=== PATIENT | male | born 1970 | race Hispanic/Latino ===

== ENCOUNTER 2018-11-23 20:13 | Observation (INO) | payer BC ==
[2018-11-23] MEDS ORDERED: Sodium Chloride 0.9% 1,000 ML IV ONE (20:22)
[2018-11-23] MEDS ORDERED: Sodium Chloride 0.9% 10 ML Syringe FLUSH PRN ×2 (20:22→23:23)
[2018-11-23] MEDS ORDERED: Sodium Chloride 0.9% 2.5 ML Syringe FLUSH PRN ×2 (20:22→23:23)
--- NOTE | 2018-11-23 20:22 | EDM.PDOC ---
ED HPI GENERAL MEDICAL PROBLEM - General Chief Complaint: Chest Pain Stated Complaint: CHEST PAIN Time Seen by Provider: 11/23/18 20:21 Source of Information: Reports: Patient History Limitations: Reports: No Limitations - History of Present Illness INITIAL COMMENTS - FREE TEXT/NARRATIVE: HISTORY AND PHYSICAL: History of present illness: Patient is a 48-year-old male presents to the ED with complaint of chest pain. He states that it started about 10:00 this morning. He reports this afternoon while he was talking to his coworker he felt lightheaded and had a tingling sensation in his left chest and states that he saw his coworkers lips moving but could not hear them talking. He states this resolved shortly afterwards but has had a lingering mild pain in the chest which she still currently has. He denies any pain into the left jaw or arm, shortness of breath, nausea, diaphoresis. He states he did stay home from work earlier this week due to a cough and generally not feeling well. He denies significant past medical or cardiac history. He states he smokes half a pack a day 30 years. Reports occasional social alcohol use and denies illicit drug use. Review of systems: As per history of present illness and below otherwise all systems reviewed and negative. Past medical history: As per history of present illness and as reviewed below otherwise noncontributory. Surgical history: As per history of present illness and as reviewed below otherwise noncontributory. Social history: No reported history of drug or alcohol abuse. Family history: As per history of present illness and as reviewed below otherwise noncontributory. Physical exam: General: Patient sitting comfortably in no acute distress and nontoxic appearing HEENT: Atraumatic, normocephalic, pupils reactive, negative for conjunctival pallor or scleral icterus, mucous membranes moist, throat clear, neck supple, nontender, trachea midline. No meningeal signs. Lungs: Clear to auscultation, breath sounds equal bilaterally, chest nontender. Heart: S1S2, regular, negative for clicks, rubs, or overt murmur. Abdomen: Soft, nondistended, nontender. Negative for masses or hepatosplenomegaly. Negative for costovertebral tenderness. No rigidity, rebound , guarding. Pelvis: Stable nontender. Genitourinary: Deferred. Rectal: Deferred. Extremities: Atraumatic, negative for cords or calf pain. Neurovascular unremarkable. Neuro: Awake, alert, oriented. Cranial nerves II through XII unremarkable. Cerebellum unremarkable. Motor and sensory unremarkable throughout. Exam nonfocal. Notes: Diagnostics: CBC, CMP, troponin, PT/INR, chest x-ray, EKG Therapeutics: Aspirin 324mg chewed Prescriptions: Impression: Chest pain Plan: Discussed with Dr. Nicole, patient will be admitted to observation for chest pain r/o ACS. Definitive disposition and diagnosis as appropriate pending reevaluation and review of above. Chest Area Pain Score (Numeric/FACES): 6 - Related Data Allergies Allergy/AdvReac Type Severity Reaction Status Date / Time No Known Allergies Allergy Verified 11/23/18 20:17 Home Meds: Home Meds Albuterol Sulfate [Proair Hfa] 8.5 gm IH ASDIRECTED PRN 11/23/18 [History] Methimazole [Tapazole] 10 mg PO DAILY 11/23/18 [History] ED ROS GENERAL - Review of Systems Review Of Systems: ROS reveals no pertinent complaints other than HPI. ED EXAM, GENERAL - Physical Exam Exam: See Below (See dictation) Course - Vital Signs Last Recorded V/S: Last Vital Signs Temp 97.5 F 11/23/18 20:15 Pulse 63 11/23/18 21:00 Resp 17 11/23/18 21:00 BP 162/103 H 11/23/18 21:00 Pulse Ox 96 11/23/18 21:00 - Orders/Labs/Meds Orders: Active Orders 24 hr Category Date Time Status Cardiac Monitoring [RC] . DIRECTED Care 11/23/18 20:22 Active EKG Documentation Completion [RC] STAT Care 11/23/18 20:22 Active Sodium Chloride 0.9% [Saline Flush] Med 11/23/18 20:22 Active 10 ml FLUSH ASDIRECTED PRN Sodium Chloride 0.9% [Saline Flush] Med 11/23/18 20:22 Active 2.5 ml FLUSH ASDIRECTED PRN Saline Lock Insert [OM.PC] Stat Oth 11/23/18 20:22 Ordered Medication Orders Sodium Chloride (Saline Flush) 10 ml FLUSH ASDIRECTED PRN PRN Reason: Keep Vein Open Sodium Chloride (Saline Flush) 2.5 ml FLUSH ASDIRECTED PRN PRN Reason: Keep Vein Open Labs: Laboratory Tests 11/23/18 11/23/18 11/23/18 Range/Units 20:34 20:34 20:34 WBC 6.51 (4.0-11.0) K/uL RBC 5.02 (4.50-5.90) M/uL Hgb 16.1 (13.0-17.0) g/dL Hct 45.1 (38.0-50.0) % MCV 89.8 (80.0-98.0) fL MCH 32.1 H (27.0-32.0) pg MCHC 35.7 (31.0-37.0) g/dL RDW Std Deviation 41.7 (28.0-62.0) fl RDW Coeff of [place] 13 (11.0-15.0) % Plt Count 220 (150-400) K/uL MPV 9.60 (7.40-12.00) fL Neut % (Auto) 36.3 L (48.0-80.0) % Lymph % (Auto) 48.1 H (16.0-40.0) % [place] % (Auto) 8.8 (0.0-15.0) % Eos % (Auto) 6.6 (0.0-7.0) % Baso % (Auto) 0.2 (0.0-1.5) % Neut # (Auto) 2.4 (1.4-5.7) K/uL Lymph # (Auto) 3.1 H (0.6-2.4) K/uL [place] # (Auto) 0.6 (0.0-0.8) K/uL Eos # (Auto) 0.4 (0.0-0.7) K/uL Baso # (Auto) 0.0 (0.0-0.1) K/uL Nucleated RBC % 0.0 /100WBC Nucleated RBCs # 0 K/uL INR 0.94 Sodium 141 (136-148) mmol/L Potassium 3.8 (3.5-5.1) mmol/L Chloride 107 (98-107) mmol/L Carbon Dioxide 25.8 (21.0-32.0) mmol/L BUN 13 (7.0-18.0) mg/dL Creatinine 0.9 (0.8-1.3) mg/dL Est Cr Clr Drug Dosing TNP Estimated GFR (MDRD) > 60.0 ml/min Glucose 108 H (74-106) mg/dL Calcium 9.5 (8.5-10.1) mg/dL Total Bilirubin 0.4 (0.2-1.0) mg/dL AST 25 (15-37) IU/L ALT 26 (14-63) IU/L Alkaline Phosphatase 112 (46-116) U/L Troponin I < 0.050 (0.000-0.056) ng/mL Total Protein 6.7 (6.4-8.2) g/dL Albumin 3.5 (3.4-5.0) g/dL Globulin 3.2 (2.6-4.0) g/dL Albumin/Globulin Ratio 1.1 (0.9-1.6) Meds: Medications Generic Name Dose Route Start Last Admin Trade Name Freq PRN Reason Stop Dose Admin Sodium Chloride 10 ml 11/23/18 20:22 Saline Flush FLUSH ASDIRECTED PRN Keep Vein Open Sodium Chloride 2.5 ml 11/23/18 20:22 Saline Flush FLUSH ASDIRECTED PRN Keep Vein Open Discontinued Medications Generic Name Dose Route Start Last Admin Trade Name Freq PRN Reason Stop Dose Admin Aspirin 324 mg 11/23/18 20:28 11/23/18 20:33 Aspirin PO 11/23/18 20:29 324 mg ONETIME ONE Administration Sodium Chloride 1,000 mls @ 999 mls/hr 11/23/18 20:22 11/23/18 20:33 Normal Saline IV 11/23/18 21:22 999 mls/hr BOLUS ONE Administration Departure - Departure Time of Disposition: 22:05 Disposition: Refer to Observation Condition: Good Clinical Impression: Chest pain Referrals: PCP,None [Primary Care Provider] - Forms: ED Department Discharge - My Orders Last 24 Hours: My Active Orders 11/23/18 20:22 Cardiac Monitoring [RC] . DIRECTED EKG Documentation Completion [RC] STAT Sodium Chloride 0.9% [Saline Flush] 10 ml FLUSH ASDIRECTED PRN Sodium Chloride 0.9% [Saline Flush] 2.5 ml FLUSH ASDIRECTED PRN Saline Lock Insert [OM.PC] Stat - Assessment/Plan Last 24 Hours: My Active Orders 11/23/18 20:22 Cardiac Monitoring [RC] . DIRECTED EKG Documentation Completion [RC] STAT Sodium Chloride 0.9% [Saline Flush] 10 ml FLUSH ASDIRECTED PRN Sodium Chloride 0.9% [Saline Flush] 2.5 ml FLUSH ASDIRECTED PRN Saline Lock Insert [OM.PC] Stat
[2018-11-23] MEDS ORDERED: Aspirin 81 MG Tab.Chew PO ONE (20:28)
[2018-11-23 20:55] LABS: BLOOD UREA NITROGEN,BUN 13 mg/dL (7.0-18.0); CARBON DIOXIDE,CO2 25.8 mmol/L (21.0-32.0); CHLORIDE,CL 107 mmol/L (98-107); GLUCOSE RANDOM 108 mg/dL (74-106); POTASSIUM,K 3.8 mmol/L (3.5-5.1); SODIUM,NA 141 mmol/L (136-148)
--- NOTE | 2018-11-23 21:47 | CR ---
INDICATION: Shortness of breath TECHNIQUE: Chest 1 view. COMPARISON: None. FINDINGS: Cardiovascular and mediastinum: Heart size and vasculature are normal in caliber and appearance. Mediastinum is within normal limits. Lungs and pleural space: Lungs are clear. No sign of infiltrate or mass. No sign of pleural effusion. No pneumothorax. Bones and soft tissues: No significant findings. IMPRESSION: Unremarkable chest. Dictated by: Rene Govea MD @ 11/23/2018 21:46:51 (Electronically Signed)
[2018-11-23] MEDS ORDERED: Acetaminophen 325 MG Tab PO PRN (23:22)
--- NOTE | 2018-11-24 08:03 | PCM.HP.2 ---
H&P History of Present Illness - General Date of Service: 11/24/18 Admit Problem/Dx: Admission Diagnosis/Problem Admission Diagnosis/Problem Chest pain - History of Present Illness Initial Comments - Free Text/Narative: The patient is a 48-year-old male who presented to the ER yesterday with chest pain. 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 He had associated lightheadedness, diaphoresis and shortness of breath. He's never had anything like this before. The pain was intermittent and lasted for minutes at a time. During this time he also noted that his coworker was speaking to him but he couldn't hear them. He denies any past cardiac history. He does note that his father from heart attack at 55. He has hyperthyroidism, takes methimazole, for which he is seeing an [facility]dis registered nurse rn in [place] on Dec 09, 2018. He is a smoker, 1/2 day for 30 years, drinks 6 pack/week, denies drugs. In the ER workup showed no white count, no anemia, no major electrolyte abnormalities and negative troponin. INR was within normal limits. A chest x- ray showed no acute cardiopulmonary process. EKG showed sinus rhythm with early repolarization. In the ER he was given aspirin and IV fluids. PCP- Dr. Garcia Asian Studies Program Chair in [place] Chest Area Pain Score (Numeric/FACES): 6 - Related Data Allergies/Adverse Reactions: Allergies Allergy/AdvReac Type Severity Reaction Status Date / Time No Known Allergies Allergy Verified 11/23/18 20:17 Home Medications: Home Meds Albuterol Sulfate [Proair Hfa] 8.5 gm IH ASDIRECTED PRN 11/23/18 [History] Methimazole [Tapazole] 10 mg PO DAILY 11/23/18 [History] hydroCHLOROthiazide [Hydrochlorothiazide] 25 mg PO DAILY 30 Days #30 tablet [Rx] Past Medical History HEENT History: Reports: None Cardiovascular History: Reports: None Respiratory History: Reports: Asthma Gastrointestinal History: Reports: None Genitourinary History: Reports: None Musculoskeletal History: Reports: None Neurological History: Reports: None Psychiatric History: Reports: None Endocrine/Metabolic History: Reports: Hyperthyroidism Insulin Pump Model and Director External Communications: N/A Hematologic History: Reports: None Immunologic History: Reports: None Oncologic (Cancer) History: Reports: None Dermatologic History: Reports: None - Infectious Disease History Infectious Disease History: Reports: None - Past Surgical History Head Surgeries/Procedures: Reports: None HEENT Surgical History: Reports: None Cardiovascular Surgical History: Reports: None Respiratory Surgical History: Reports: None GI Surgical History: Reports: None Male Surgical History: Reports: None Endocrine Surgical History: Reports: None Neurological Surgical History: Reports: None Musculoskeletal Surgical History: Reports: None Oncologic Surgical History: Reports: None Dermatological Surgical History: Reports: None Social & Family History - Family History Cardiac: Reports: [place] (father from [place] at 55) - Tobacco Use Smoking Status *Q: Current Every Day Smoker Years of Tobacco use: 25 Packs/Tins Daily: 1.5 - Caffeine Use Caffeine Use: Reports: Coffee, Soda - Recreational Drug Use Recreational Drug Use: No H&P Review of Systems - Review of Systems: Review Of Systems: See Below General: Reports: Diaphoresis. Denies: Fever, Chills HEENT: Reports: No Symptoms Pulmonary: Reports: Shortness of Breath Cardiovascular: Reports: Chest Pain, Lightheadedness, Blood Pressure Problem. Denies: Edema Gastrointestinal: Reports: No Symptoms Genitourinary: Reports: No Symptoms Musculoskeletal: Reports: No Symptoms Skin: Reports: No Symptoms Psychiatric: Reports: No Symptoms Hematologic/Lymphatic: Reports: No Symptoms Immunologic: Reports: No Symptoms Exam - Exam Exam: See Below - Vital Signs Vital Signs: Last Vital Signs Temp 97.4 F 11/24/18 04:00 Pulse 66 11/24/18 04:00 Resp 18 11/24/18 04:00 BP 160/79 H 11/24/18 04:00 Pulse Ox 97 11/24/18 04:00 Weight: 107.365 kg - Exam General: Alert, Oriented, Cooperative HEENT: Conjunctiva Clear, EOMI, Mucosa Moist & [place], Posterior Pharynx Clear, Pupils Equal, Pupils Reactive Neck: Supple Lungs: Clear to Auscultation, Normal Respiratory Effort Cardiovascular: Regular Rate, Regular Rhythm GI/Abdominal Exam: Normal Bowel Sounds, Soft, Non-Tender, No Distention Extremities: No Pedal Edema Skin: Warm, Dry, Intact Neurological: Cranial Nerves Intact Neuro Extensive - Mental Status: Alert, Oriented x3 Psychiatric: Alert, Normal Affect, Normal Mood - Patient Data Lab Results Last 24 hrs: Laboratory Results - last 24 hr 11/23/18 11/23/18 11/23/18 Range/Units 20:34 20:34 20:34 WBC 6.51 (4.0-11.0) K/uL RBC 5.02 (4.50-5.90) M/uL Hgb 16.1 (13.0-17.0) g/dL Hct 45.1 (38.0-50.0) % MCV 89.8 (80.0-98.0) fL MCH 32.1 H (27.0-32.0) pg MCHC 35.7 (31.0-37.0) g/dL RDW Std Deviation 41.7 (28.0-62.0) fl RDW Coeff of Neeru 13 (11.0-15.0) % Plt Count 220 (150-400) K/uL MPV 9.60 (7.40-12.00) fL Neut % (Auto) 36.3 L (48.0-80.0) % Lymph % (Auto) 48.1 H (16.0-40.0) % [place] % (Auto) 8.8 (0.0-15.0) % Eos % (Auto) 6.6 (0.0-7.0) % Baso % (Auto) 0.2 (0.0-1.5) % Neut # (Auto) 2.4 (1.4-5.7) K/uL Lymph # (Auto) 3.1 H (0.6-2.4) K/uL [place] # (Auto) 0.6 (0.0-0.8) K/uL Eos # (Auto) 0.4 (0.0-0.7) K/uL Baso # (Auto) 0.0 (0.0-0.1) K/uL Nucleated RBC % 0.0 /100WBC Nucleated RBCs # 0 K/uL INR 0.94 Sodium 141 (136-148) mmol/L Potassium 3.8 (3.5-5.1) mmol/L Chloride 107 (98-107) mmol/L Carbon Dioxide 25.8 (21.0-32.0) mmol/L BUN 13 (7.0-18.0) mg/dL Creatinine 0.9 (0.8-1.3) mg/dL Est Cr Clr Drug Dosing TNP Estimated GFR (MDRD) > 60.0 ml/min Glucose 108 H (74-106) mg/dL Calcium 9.5 (8.5-10.1) mg/dL Total Bilirubin 0.4 (0.2-1.0) mg/dL AST 25 (15-37) IU/L ALT 26 (14-63) IU/L Alkaline Phosphatase 112 (46-116) U/L Troponin I < 0.050 (0.000-0.056) ng/mL Total Protein 6.7 (6.4-8.2) g/dL Albumin 3.5 (3.4-5.0) g/dL Globulin 3.2 (2.6-4.0) g/dL Albumin/Globulin Ratio 1.1 (0.9-1.6) 11/24/18 Range/Units 02:20 WBC (4.0-11.0) K/uL RBC (4.50-5.90) M/uL Hgb (13.0-17.0) g/dL Hct (38.0-50.0) % MCV (80.0-98.0) fL MCH (27.0-32.0) pg MCHC (31.0-37.0) g/dL RDW Std Deviation (28.0-62.0) fl RDW Coeff of Neeru (11.0-15.0) % Plt Count (150-400) K/uL MPV (7.40-12.00) fL Neut % (Auto) (48.0-80.0) % Lymph % (Auto) (16.0-40.0) % [place] % (Auto) (0.0-15.0) % Eos % (Auto) (0.0-7.0) % Baso % (Auto) (0.0-1.5) % Neut # (Auto) (1.4-5.7) K/uL Lymph # (Auto) (0.6-2.4) K/uL [place] # (Auto) (0.0-0.8) K/uL Eos # (Auto) (0.0-0.7) K/uL Baso # (Auto) (0.0-0.1) K/uL Nucleated RBC % /100WBC Nucleated RBCs # K/uL INR Sodium (136-148) mmol/L Potassium (3.5-5.1) mmol/L Chloride (98-107) mmol/L Carbon Dioxide (21.0-32.0) mmol/L BUN (7.0-18.0) mg/dL Creatinine (0.8-1.3) mg/dL Est Cr Clr Drug Dosing Estimated GFR (MDRD) ml/min Glucose (74-106) mg/dL Calcium (8.5-10.1) mg/dL Total Bilirubin (0.2-1.0) mg/dL AST (15-37) IU/L ALT (14-63) IU/L Alkaline Phosphatase (46-116) U/L Troponin I < 0.050 (0.000-0.056) ng/mL Total Protein (6.4-8.2) g/dL Albumin (3.4-5.0) g/dL Globulin (2.6-4.0) g/dL Albumin/Globulin Ratio (0.9-1.6) Result Diagrams: 11/23/18 20:34 11/23/18 20:34 Problem List Initiated/Reviewed/Updated: Yes Orders Last 24hrs: Active Orders 24 hr Category Date Time Status Admission Status [Patient Status] [ADT] Stat ADT 11/23/18 22:06 Active Telemetry Monitoring [Cardiac Monitoring] [RC] Q8H Care 11/23/18 23:23 Active Regular Diet [DIET] Diet 11/24/18 Breakfast Active TROPONIN I [CHEM] Q6H Lab 11/24/18 08:30 Ordered Acetaminophen [Tylenol] Med 11/23/18 23:22 Active 650 mg PO Q6H PRN Sodium Chloride 0.9% [Saline Flush] Med 11/23/18 20:22 Active 10 ml FLUSH ASDIRECTED PRN Sodium Chloride 0.9% [Saline Flush] Med 11/23/18 20:22 Active 2.5 ml FLUSH ASDIRECTED PRN Convert IV to Saline Lock [OM.PC] Routine Oth 11/23/18 23:23 Ordered Saline Lock Insert [OM.PC] Stat Oth 11/23/18 20:22 Ordered Medication Orders Acetaminophen (Tylenol) 650 mg PO Q6H PRN PRN Reason: Pain Sodium Chloride (Saline Flush) 10 ml FLUSH ASDIRECTED PRN PRN Reason: Keep Vein Open Sodium Chloride (Saline Flush) 2.5 ml FLUSH ASDIRECTED PRN PRN Reason: Keep Vein Open Assessment/Plan Comment:: 1.Admit for observation 2. Code Status- full 3. Vitals per routine 4. I/Os per routine 5. Diet- heart healthy 6. DVT with SCDs 7. Chest pain ACS r/o-monitor on telemetry, trend troponins 8. HTN- elevated BP in the 160s/90 this whole admission, discussed starting a medication to control BP, agreeable and started on HCTZ 25 mg daily. Discussed lifestyle changes such as diet, exercise, and weight loss. 9. Smoker- discussed smoking cessation 10. Chronic conditions- Asthma/hyperthyroidism- continue home meds. Has upcoming appt with endocrinology in [place] on 12/09/18. The patient was admitted overnight, monitored on telemetry without any significant events. His troponins were trended and negative x 3. He was chest pain free throughout admission. He was started on 25 mg of HCTZ. Instructed him to get a blood pressure cuff and keep a record of his blood pressures to bring to his PCP at follow up. , He was tolerating an oral diet and ambulating without difficulty. Will be discharged home on home meds with the new addition of HCTZ. Should stick to heart heathy diet, increase exercise, and stop smoking. Symptoms to report to physician include fever/chills, chest pain , shortness of breath, abdominal pain, erythema, discharge, or not improving as expected. Follow up with PCP, Dr. Garcia and hedis registered nurse rn in December. Recommended/order outpatient stress test.
[2018-11-24] MEDS ORDERED: Albuterol 8 GM Inhaler INH PRN (08:16)
[2018-11-24] MEDS ORDERED: Methimazole 5 MG Tab PO SCH ×2 (09:00→09:01)
[2018-11-24] MEDS ORDERED: METHIMAZOLE 10 MG PO SCH (09:00)
[2018-11-24] MEDS ORDERED: Hydrochlorothiazide 25 MG Tab PO SCH (09:45)
== END 2018-11-24 11:30 | disposition home or self-care (01) ==
LOC: MW.ED 20:13 → MW.MS 22:06
PROVIDERS: ADMIT Internal Medicine; ATTEND Internal Medicine
DX: R07.9 Chest pain, unspecified (principal); R42 Dizziness and giddiness; R61 Generalized hyperhidrosis; R06.02 Shortness of breath; E05.90 Thyrotoxicosis, unspecified without thyrotoxic crisis or storm; J45.909 Unspecified asthma, uncomplicated; I10 Essential (primary) hypertension; F17.210 Nicotine dependence, cigarettes, uncomplicated
CPT/HCPCS: 36415; 71045; 80053; 84484; 85025; 85610; 93005; 96360; 99285; A9270; G0378; J7040; 99284

== ENCOUNTER 2019-12-23 12:46 | Emergency (ER) | payer BC ==
[2019-12-23] MEDS ORDERED: Aspirin 81 MG Tab.Chew PO ONE (12:59)
[2019-12-23] MEDS ORDERED: Sodium Chloride 0.9% 2.5 ML Syringe FLUSH PRN (12:59)
--- NOTE | 2019-12-23 13:15 | EDM.PDOC ---
ED HPI GENERAL MEDICAL PROBLEM - General Chief Complaint: Chest Pain Stated Complaint: CHEST PAIN Time Seen by Provider: 12/23/19 12:59 - History of Present Illness INITIAL COMMENTS - FREE TEXT/NARRATIVE: History of present illness: Patient presents with sudden onset of chest pain that began 1 hour prior to arrival he describes it as substernal to the left side of his sternum and sharp in nature it is constant he is not short of breath he is not nauseous he is not vomiting he does not have leg pain or leg swelling no fever cough congestion chills sore throat or other symptoms. 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 He states he has had this pain occasionally in the past but has never sought medical care for it he has hypertension and is a smoker of half pack a day. Review of systems: As per history of present illness and below otherwise all systems reviewed and negative. Past medical history: As per history of present illness and as reviewed below otherwise noncontributory. Surgical history: As per history of present illness and as reviewed below otherwise noncontributory. Social history: No reported history of drug or alcohol abuse. Family history: As per history of present illness and as reviewed below otherwise noncontributory. Physical exam: HEENT: Atraumatic, normocephalic, pupils reactive, negative for conjunctival pallor or scleral icterus, mucous membranes moist, throat clear, neck supple, nontender, trachea midline. Lungs: Clear to auscultation, breath sounds equal bilaterally, chest nontender. Heart: S1S2, regular, negative for clicks, rubs, or JVD. Abdomen: Soft, nondistended, nontender. Negative for masses or hepatosplenomegaly. Negative for costovertebral tenderness. Pelvis: Stable nontender. Genitourinary: Deferred. Rectal: Deferred. Extremities: Atraumatic, negative for cords or calf pain. Neurovascular unremarkable. Neuro: Awake, alert, oriented. Cranial nerves II through XII unremarkable. Cerebellum unremarkable. Motor and sensory unremarkable throughout. Exam nonfocal. Diagnostics: [] Therapeutics: [] Impression: Chest pain Plan: Cardiac work-up reassessed the patient [] Definitive disposition and diagnosis as appropriate pending reevaluation and review of above. left chest Pain Score (Numeric/FACES): 7 - Related Data Allergies Allergy/AdvReac Type Severity Reaction Status Date / Time No Known Allergies Allergy Verified 12/23/19 13:02 Home Meds: Home Meds Albuterol Sulfate [Proair Hfa] 1 puff IH ASDIRECTED PRN 11/23/18 [History] Methimazole [Tapazole] 10 mg PO DAILY 11/23/18 [History] Chlorthalidone 1 tab PO DAILY 12/23/19 [History] Omeprazole 20 mg PO DAILY 12/23/19 [History] Past Medical History HEENT History: Reports: None Cardiovascular History: Reports: Hypertension Respiratory History: Reports: Asthma Gastrointestinal History: Reports: None Genitourinary History: Reports: None Musculoskeletal History: Reports: None Neurological History: Reports: None Psychiatric History: Reports: None Endocrine/Metabolic History: Reports: Hyperthyroidism Other Endocrine/Metabolic History: Overactive Thyroid 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 Hematologic History: Reports: None Immunologic History: Reports: None Oncologic (Cancer) History: Reports: None Dermatologic History: Reports: None - Infectious Disease History Infectious Disease History: Reports: None - Past Surgical History Head Surgeries/Procedures: Reports: None HEENT Surgical History: Reports: None Cardiovascular Surgical History: Reports: None Respiratory Surgical History: Reports: None GI Surgical History: Reports: None Male Surgical History: Reports: None Endocrine Surgical History: Reports: None Neurological Surgical History: Reports: None Musculoskeletal Surgical History: Reports: None Oncologic Surgical History: Reports: None Dermatological Surgical History: Reports: None Social & Family History - Family History Family Medical History: Noncontributory Cardiac: Reports: NM - Tobacco Use Tobacco Use Status *Q: Current Every Day Tobacco User Years of Tobacco use: 10 Packs/Tins Daily: 0.5 - Caffeine Use Caffeine Use: Reports: Coffee, Soda - Recreational Drug Use Recreational Drug Use: No ED ROS GENERAL - Review of Systems Review Of Systems: See Below ED EXAM, GENERAL - Physical Exam Exam: See Below #1 Interpretation EKG Interpretation Comments: EKG is normal sinus rhythm rate of 79 bpm normal axis normal intervals no ischemic changes read and interpreted by me Course - Vital Signs Text/Narrative:: One-view portable chest read interpreted by me no acute cardiopulmonary pathology is evident Patient was reexamined at 4:45 PM he is not having any chest pain at this time a second troponin was drawn and was negative after the 3-hour blanca of his stay he will be discharged home is to return to the ED for worsening chest pain and otherwise he is to follow-up with his primary care doctor. He was encouraged and counseled to stop smoking Last Recorded V/S: Last Vital Signs Temp 36.5 C 12/23/19 12:59 Pulse 66 12/23/19 16:18 Resp 18 12/23/19 16:18 BP 126/79 12/23/19 16:18 Pulse Ox 96 12/23/19 16:18 - Orders/Labs/Meds Orders: Active Orders 24 hr Category Date Time Status EKG Documentation Completion [RC] STAT Care 12/23/19 12:59 Active Sodium Chloride 0.9% [Saline Flush] Med 12/23/19 12:59 Active 2.5 ml FLUSH ASDIRECTED PRN Medication Orders Sodium Chloride (Saline Flush) 2.5 ml FLUSH ASDIRECTED PRN PRN Reason: Keep Vein Open Last Admin: 12/23/19 13:07 Dose: 2.5 ml Documented by: DRAKE Labs: Laboratory Tests 12/23/19 12/23/19 12/23/19 Range/Units 12:56 12:56 16:18 WBC 7.94 (4.0-11.0) K/uL RBC 5.42 (4.50-5.90) M/uL Hgb 18.1 H (13.0-17.0) g/dL Hct 49.4 (38.0-50.0) % MCV 91.1 (80.0-98.0) fL MCH 33.4 H (27.0-32.0) pg MCHC 36.6 (31.0-37.0) g/dL RDW Std Deviation 43.5 (28.0-62.0) fl RDW Coeff of [place] 13 (11.0-15.0) % Plt Count 293 (150-400) K/uL MPV 9.90 (7.40-12.00) fL Neut % (Auto) 49.0 (48.0-80.0) % Lymph % (Auto) 39.4 (16.0-40.0) % [place] % (Auto) 6.4 (0.0-15.0) % Eos % (Auto) 4.4 (0.0-7.0) % Baso % (Auto) 0.8 (0.0-1.5) % Neut # (Auto) 3.9 (1.4-5.7) K/uL Lymph # (Auto) 3.1 H (0.6-2.4) K/uL [place] # (Auto) 0.5 (0.0-0.8) K/uL Eos # (Auto) 0.4 (0.0-0.7) K/uL Baso # (Auto) 0.1 (0.0-0.1) K/uL Nucleated RBC % 0.0 /100WBC Nucleated RBCs # 0 K/uL Sodium 138 (136-148) mmol/L Potassium 3.2 L (3.5-5.1) mmol/L Chloride 99 (98-107) mmol/L Carbon Dioxide 26.8 (21.0-32.0) mmol/L BUN 11 (7.0-18.0) mg/dL Creatinine 1.1 (0.8-1.3) mg/dL Est Cr Clr Drug Dosing 72.22 mL/min Estimated GFR (MDRD) > 60.0 ml/min Glucose 92 (74-106) mg/dL Calcium 9.2 (8.5-10.1) mg/dL Total Bilirubin 0.7 (0.2-1.0) mg/dL AST 28 (15-37) IU/L ALT 33 (14-63) IU/L Alkaline Phosphatase 88 (46-116) U/L Troponin I < 0.050 < 0.050 (0.000-0.056) ng/mL Total Protein 8.1 (6.4-8.2) g/dL Albumin 4.4 (3.4-5.0) g/dL Globulin 3.7 (2.6-4.0) g/dL Albumin/Globulin Ratio 1.2 (0.9-1.6) Lipase 109 (73-393) U/L Meds: Medications Generic Name Dose Route Start Last Admin Trade Name Freq PRN Reason Stop Dose Admin Sodium Chloride 2.5 ml 12/23/19 12:59 12/23/19 13:07 Saline Flush FLUSH 2.5 ml ASDIRECTED PRN Administration Keep Vein Open Discontinued Medications Generic Name Dose Route Start Last Admin Trade Name Freq PRN Reason Stop Dose Admin Acetaminophen 1,000 mg 10/14/20 16:13 12/23/19 16:16 Tylenol Extra Strength PO 12/23/19 16:14 1,000 mg ONETIME ONE Administration Aspirin 324 mg 12/23/19 12:59 12/23/19 13:07 Aspirin PO 12/23/19 13:00 324 mg ONETIME ONE Administration Departure - Departure Time of Disposition: 16:57 Disposition: Home, Self-Care 01 Condition: Good Clinical Impression: Chest pain - Discharge Information *PRESCRIPTION DRUG MONITORING PROGRAM REVIEWED*: Not Applicable *COPY OF PRESCRIPTION DRUG MONITORING REPORT IN PATIENT JAMIE: Not Applicable Instructions: Nonspecific Chest Pain, Adult Referrals: PCP,None [Primary Care Provider] - Forms: ED Department Discharge Additional Instructions: The following information is given to patients seen in the emergency department who are being discharged to home. This information is to outline your options for follow-up care. We provide all patients seen in our emergency department with a follow-up referral. The need for follow-up, as well as the timing and circumstances, are variable depending upon the specifics of your emergency department visit. If you don't have a primary care physician on staff, we will provide you with a referral. We always advise you to contact your personal physician following an emergency department visit to inform them of the circumstance of the visit and for follow-up with them and/or the need for any referrals to a consulting specialist. The emergency department will also refer you to a specialist when appropriate. This referral assures that you have the opportunity for follow-up care with a specialist. All of these measure are taken in an effort to provide you with optimal care, which includes your follow-up. Under all circumstances we always encourage you to contact your private physician who remains a resource for coordinating your care. When calling for follow-up care, please make the office aware that this follow-up is from your recent emergency room visit. If for any reason you are refused follow-up, please contact the [facility] Emergency Department at and asked to speak to the emergency department charge nurse. Sepsis Event Note (ED) - Evaluation Sepsis Screening Result: No Definite Risk - Focused Exam Vital Signs: Vital Signs Temp Pulse Resp BP Pulse Ox 12/23/19 16:18 66 18 126/79 96 12/23/19 15:39 94 18 135/87 97 12/23/19 12:59 36.5 C 84 20 164/97 H 98 - My Orders Last 24 Hours: My Active Orders 12/23/19 12:59 EKG Documentation Completion [RC] STAT Sodium Chloride 0.9% [Saline Flush] 2.5 ml FLUSH ASDIRECTED PRN - Assessment/Plan Last 24 Hours: My Active Orders 12/23/19 12:59 EKG Documentation Completion [RC] STAT Sodium Chloride 0.9% [Saline Flush] 2.5 ml FLUSH ASDIRECTED PRN
[2019-12-23 13:35] LABS: BLOOD UREA NITROGEN,BUN 11 mg/dL (7.0-18.0); CARBON DIOXIDE,CO2 26.8 mmol/L (21.0-32.0); CHLORIDE,CL 99 mmol/L (98-107); GLUCOSE RANDOM 92 mg/dL (74-106); LIPASE 109 U/L (73-393); POTASSIUM,K 3.2 mmol/L (3.5-5.1); SODIUM,NA 138 mmol/L (136-148)
--- NOTE | 2019-12-23 14:41 | CR ---
INDICATION: Pain and dyspnea COMPARISON: November 23, 2018 TECHNIQUE: Single-view portable chest radiograph FINDINGS: TUBES AND LINES: None. HEART AND MEDIASTINUM: The heart size is normal. The mediastinal contour appears normal for patient age. LUNGS AND PLEURAL SPACES: The lungs appear normal.There pleural spaces are unremarkable. OSSEOUS STRUCTURES: Age-appropriate appearance. No acute focal finding. IMPRESSION: Normal single-view portable chest radiograph Dictated by Malik Huang MD @ Dec 23 2019 2:39PM Signed by Dr. Malik Huang @ Dec 23 2019 2:40PM
[2019-12-23] MEDS ORDERED: Acetaminophen 500 MG Tab PO ONE (16:13)
== END 2019-12-23 17:06 | disposition home or self-care (01) ==
LOC: MW.ED 12:46
DX: R07.2 Precordial pain (principal); I10 Essential (primary) hypertension; J45.909 Unspecified asthma, uncomplicated; E05.90 Thyrotoxicosis, unspecified without thyrotoxic crisis or storm; F17.210 Nicotine dependence, cigarettes, uncomplicated; Z79.899 Other long term (current) drug therapy
CPT/HCPCS: 36415; 71045; 80053; 83690; 84484; 85025; 93005; 99285; A9270